=== PATIENT | female | born 1970 | race Caucasian/White ===

== ENCOUNTER → 2018-11-03 | Outpatient (CLI) | payer SELFPAY | LOC: LAB 18:23 | DX: F41.9 Anxiety disorder, unspecified (principal); G47.00 Insomnia, unspecified ==

== ENCOUNTER → 2019-05-06 | Outpatient (CLI) | payer BC ==
[2019-05-06 07:30] LABS: EOS # 0.3 (0.04-0.40); EOS % 3.8 % (1.0-5.0); HEMATOCRIT 41.4 % (37.0-47.0); HEMOGLOBIN 13.2 g/dL (12.5-16.0); LYMPH# 2.9 (1.50-4.00); MEAN CELL VOLUME 87 fl (78-100); MEAN CORPUSCULAR HEMOGLOBIN 28 pg (27-31); MEAN CORPUSCULAR HGB CONC 32 g/dL (33-37); MEAN PLATELET VOLUME 9.4 fl (7.4-10.4); MONO # 0.5 (0.20-0.80); PLATELET COUNT 271 K/mm3 (130-400); RED BLOOD COUNT 4.78 M/mm3 (4.10-5.30); RED CELL DISTRIBUTION WIDTH 13.7 % (11.5-14.5); WHITE BLOOD COUNT 6.6 K/mm3 (4.8-10.8)
[2019-05-06 07:41] LABS: ALBUMIN 4.3 g/dL (3.5-5.0)
[2019-05-06 07:42] LABS: CALCIUM 9.4 mg/dL (8.3-10.5)
[2019-05-06 07:44] LABS: TOTAL PROTEIN 7.3 g/dL (6.4-8.3)
[2019-05-06 07:45] LABS: TOTAL BILIRUBIN 0.3 mg/dL (0.2-1.2)
== END ==
LOC: LAB 07:10
PROVIDERS: Physician Assistant
DX: Z13.1 Encounter for screening for diabetes mellitus (principal); Z13.220 Encounter for screening for lipoid disorders; E07.9 Disorder of thyroid, unspecified; E66.01 Morbid (severe) obesity due to excess calories

== ENCOUNTER → 2020-01-09 | Outpatient (CLI) | payer BC | LOC: LAB 09:56 | DX: M79.10 Myalgia, unspecified site (principal); R05 Cough; R06.02 Shortness of breath; R53.83 Other fatigue ==

== ENCOUNTER 2020-04-08 10:56 | Emergency (ER) | payer BC ==
[2020-04-08] MEDS ORDERED: PHENTERMINE HYD30 MG PO (11:07)
[2020-04-08] MEDS ORDERED: LEVOTHYROXIN0.088 MG PO (11:07)
[2020-04-08] MEDS ORDERED: CYCLOBENZAPRINE10 M1 PO (11:43)
[2020-04-08 11:55] VITALS: BP 132/81
== END 2020-04-08 11:57 | disposition home or self-care (01) ==
LOC: ED 10:56
DX: S46.811A Strain of other muscles, fascia and tendons at shoulder and upper arm level, right arm, initial encounter (principal); E03.9 Hypothyroidism, unspecified; F17.210 Nicotine dependence, cigarettes, uncomplicated; Z79.890 Hormone replacement therapy; X50.0XXA Overexertion from strenuous movement or load, initial encounter; Y93.B9 Activity, other involving muscle strengthening exercises; Y92.39 Other specified sports and athletic area as the place of occurrence of the external cause

== ENCOUNTER → 2020-05-23 | Outpatient (CLI) | payer BC ==
[~2020-05-23] MED LIST: CYCLOBENZAPRINE10 M1 PO; LEVOTHYROXIN0.088 MG PO; PHENTERMINE HYD30 MG PO
== END ==
LOC: LAB 09:19
DX: R05 Cough (principal); R51 Headache; R50.9 Fever, unspecified; R11.0 Nausea; Z20.828 Contact with and (suspected) exposure to other viral communicable diseases

== ENCOUNTER → 2020-12-10 | Outpatient (CLI) | payer SELFPAY | LOC: LAB 12:07 | DX: J06.9 Acute upper respiratory infection, unspecified (principal); Z20.822 Contact with and (suspected) exposure to COVID-19 ==

== ENCOUNTER → 2021-03-06 | Outpatient (REF) | LOC: LAB 08:31 | DX: Z00.00 Encounter for general adult medical examination without abnormal findings (principal); E78.5 Hyperlipidemia, unspecified; R73.9 Hyperglycemia, unspecified; E07.9 Disorder of thyroid, unspecified; E55.9 Vitamin D deficiency, unspecified ==

== ENCOUNTER → 2021-04-03 | Outpatient (CLI) | payer BC | LOC: MAMMO 16:00 | DX: Z12.31 Encounter for screening mammogram for malignant neoplasm of breast (principal); N63.21 Unspecified lump in the left breast, upper outer quadrant ==

== ENCOUNTER → 2021-05-04 | Outpatient (CLI) | payer BC | LOC: LAB 11:48 | DX: Z20.822 Contact with and (suspected) exposure to COVID-19 (principal) ==

== ENCOUNTER → 2021-05-04 | Outpatient (CLI) | payer BC | END | disposition still patient (30) | LOC: LAB 12:00 → RAD 05-06 07:00 | DX: Z20.822 Contact with and (suspected) exposure to COVID-19 (principal) ==

== ENCOUNTER → 2021-05-20 | Outpatient (CLI) | payer BC | LOC: RAD 07:13 | DX: N60.02 Solitary cyst of left breast (principal) ==

== ENCOUNTER → 2021-06-11 | Outpatient (REF) | LOC: LAB 07:24 | DX: E66.01 Morbid (severe) obesity due to excess calories (principal); E03.9 Hypothyroidism, unspecified ==

== ENCOUNTER → 2021-10-15 | Outpatient (CLI) | payer BC | LOC: LAB 16:08 | DX: G47.33 Obstructive sleep apnea (adult) (pediatric) (principal); E07.9 Disorder of thyroid, unspecified; F32.9 Major depressive disorder, single episode, unspecified; F41.9 Anxiety disorder, unspecified; D64.9 Anemia, unspecified; E66.01 Morbid (severe) obesity due to excess calories ==

== ENCOUNTER → 2022-01-24 | Outpatient (REF) | LOC: LAB 16:36 | DX: E66.01 Morbid (severe) obesity due to excess calories (principal) ==

== ENCOUNTER → 2024-02-16 | Outpatient (CLI) | payer OTHER ==
[2024-02-16 07:59] LABS: ALBUMIN 4.1 g/dL (3.5-5.0)
[2024-02-16 08:01] LABS: CALCIUM 9.3 mg/dL (8.3-10.5)
[2024-02-16 08:02] LABS: TOTAL PROTEIN 6.2 g/dL (6.4-8.3)
[2024-02-16 08:04] LABS: TOTAL BILIRUBIN 0.6 mg/dL (0.2-1.2)
[2024-02-16 08:16] LABS: BASO # 0.02 K/mm3 (0.02-0.10); EOS # 0.05 K/mm3 (0.04-0.40); EOS % 1.1 % (1.0-5.0); HEMATOCRIT 37.4 % (37.0-47.0); HEMOGLOBIN 12.3 g/dL (12.5-16.0); LYMPH# 2.78 K/mm3 (1.50-4.00); MEAN CELL VOLUME 93 fl (78-100); MEAN CORPUSCULAR HEMOGLOBIN 31 pg (27-31); MEAN CORPUSCULAR HGB CONC 33 g/dL (33-37); NEU # 1.46 K/mm3 (1.40-6.50); PLATELET COUNT 187 K/mm3 (130-400); RED BLOOD COUNT 4.01 M/mm3 (4.10-5.30); RED CELL DISTRIBUTION WIDTH 13.1 % (11.5-14.5); WHITE BLOOD COUNT 4.5 K/mm3 (4.8-10.8)
[2024-02-17 22:04] LABS: PTH,INTACT 25.5 pg/mL (6.6-88.9)
[2024-02-17 22:20] LABS: FOLATE (FOLIC ACID) 4.8 ng/mL (2.0-20.0)
[2024-02-23 10:45] LABS: VITAMIN A 20.7
== END ==
LOC: LAB 07:30
PROVIDERS: Surgery
DX: E55.9 Vitamin D deficiency, unspecified (principal); D50.8 Other iron deficiency anemias; Z98.84 Bariatric surgery status

== ENCOUNTER → 2024-08-12 | Outpatient (CLI) | payer OTHER ==
[2024-08-12 12:03] LABS: BASO # 0.03 K/mm3 (0.02-0.10); EOS # 0.05 K/mm3 (0.04-0.40); EOS % 0.7 % (1.0-5.0); HEMATOCRIT 39.5 % (37.0-47.0); HEMOGLOBIN 12.9 g/dL (12.5-16.0); LYMPH# 2.96 K/mm3 (1.50-4.00); MEAN CELL VOLUME 94 fl (78-100); MEAN CORPUSCULAR HEMOGLOBIN 31 pg (27-31); MEAN CORPUSCULAR HGB CONC 33 g/dL (33-37); MEAN PLATELET VOLUME 9.3 fl (7.4-10.4); MONO # 0.28 K/mm3 (0.20-0.80); PLATELET COUNT 209 K/mm3 (130-400); RED CELL DISTRIBUTION WIDTH 12.1 % (11.5-14.5)
[2024-08-12 12:08] LABS: ALBUMIN 4.6 g/dL (3.5-5.0)
[2024-08-12 12:09] LABS: CALCIUM 9.9 mg/dL (8.3-10.5)
[2024-08-12 12:13] LABS: TOTAL BILIRUBIN 0.4 mg/dL (0.2-1.2)
== END ==
LOC: LAB 11:46
PROVIDERS: Physician Assistant
DX: K90.9 Intestinal malabsorption, unspecified (principal); E78.5 Hyperlipidemia, unspecified; E07.9 Disorder of thyroid, unspecified

== ENCOUNTER → 2024-08-23 | Outpatient (CLI) | payer OTHER | LOC: MAMMO 11:24 | DX: Z12.31 Encounter for screening mammogram for malignant neoplasm of breast (principal) ==